=== PATIENT | male | born 1955 | race Caucasian/White ===

== ENCOUNTER 2023-08-20 06:10 | Day surgery (SDC) | payer OTHER, SELFPAY ==
[2023-08-16 07:16] VITALS: BMI 48.4
[2023-08-16 08:59] LABS: Hematocrit 50.9 % (39.0-52.0); Hemoglobin 17.2 g/dL (13.0-18.0); Mean Corp Hgb Conc. 33.8 g/dL (33.0-37.0); Mean Corpuscular Hgb 32.3 pg (27.0-31.0); Mean Corpuscular Volume 95.7 fL (80.0-94.0); Mean Platelet Volume 12.3 fL (7.4-10.4); Platelet Count 140 10^3/uL (130-400); Red Blood Cell Count 5.32 10^6/uL (4.70-6.10); Red Cell Dist. Width 13.9 % (11.5-14.5); White Blood Cell Count 4.7 10^3/uL (4.8-10.8)
[2023-08-16 09:12] LABS: APTT 32.3 Sec (23.4-35.0); INR 1.04; PT 13.4 Sec (11.4-14.6)
[2023-08-16 09:32] LABS: ALT (SGPT) 22 U/L (0-50); AST (SGOT) 35 U/L (17-59); Albumin 4.1 g/dl (3.5-5.0); Alkaline Phosphatase 114 U/L (38-126); Blood Urea Nitrogen 21 mg/dl (9-20); Calcium 10.3 mg/dl (8.4-10.2); Carbon Dioxide 28 mmol/L (22-30); Chloride 101 mmol/L (98-107); Estimated Creatinine Clearance > 125 ml/min; Glucose 198 mg/dl (70-99); Potassium 4.7 mmol/L (3.5-5.1); Sodium 134 mmol/L (135-145); Total Bilirubin 0.6 mg/dl (0.2-1.3); Total Protein 6.8 g/dl (6.3-8.2); eGFR > 60.00
[2023-08-20] VITALS (12 sets, daily range): BP systolic 116–161; BP diastolic 60–86; BMI 48.4
[2023-08-20] MEDS: TYLENOL 1000 MG PO (09:12)
[2023-08-20] MEDS: HEPARIN 5000 UNITS SC (09:13)
[2023-08-20] MEDS: NEURONTIN 300 MG PO (09:13)
[2023-08-20] MEDS: NORMOSOL-R 1000 IV (09:23)
[2023-08-20 09:24] LABS: Glucose - Point of Care 225 mg/dl (70-99)
[2023-08-20] MEDS: NOVOLOG vial 1 UNITS SC ×3 (09:35→13:31)
[2023-08-20 10:44] LABS: Turbo PTH 109.2 pg/ml (13.6-85.8)
[2023-08-20 11:09] LABS: Glucose - Point of Care 196 mg/dl (70-99)
[2023-08-20 11:29] LABS: Turbo PTH 23.1 pg/ml (13.6-85.8)
--- NOTE | 2023-08-20 11:46 | OR.RPT ---
Operative Report
Operative Report
Date of Operation: August 20, 2023
Preoperative Diagnosis: Parathyroid hyperparathyroidism - E210
Postoperative Diagnosis: Same
Surgeon: Rene Alejo M.D.
Operation: Minimally Invasive Right Inferior Parathyroidectomy - 29218
Anesthesia: GET
Estimated Blood Loss: 530 cc
Drains: None
Specimen: Right inferior neck nodule, rule out parathyroid adenoma
Complications: None
Procedure:
The patient was taken to the operating room and placed in the usual supine position. After adequate general endotracheal anesthesia was established, the patient's neck was extended, prepped, and draped in the typical sterile fashion. A 4 cm
transcervical incision was made two fingerbreadths above the sternal notch. The skin incision was made with the #15 blade, and this was taken through the skin into the subcutaneous tissue. The underlying platysma muscle was divided, and subplatysmal
flaps were created superiorly to the thyroid cartilage and inferiorly to the sternal notch. Strap muscles were identified and at the midline.
Attention was turned to the patient's right side of the neck. The right thyroid lobe was mobilized medially. During this process, the right recurrent laryngeal nerve was identified and preserved throughout the surgery. The right lower neck nodule
was identified and noted to be enlarged, excised, and sent to the pathology department, which showed a hypercellular parathyroid gland. The intraoperative PTH levels normalized.
After obtaining adequate hemostasis, the strap muscles were reapproximated with #3-0 Vicryl in a running fashion. The platysma muscle was reapproximated with #3-0 Vicryl in an interrupted fashion, and the skin was approximated with #4-0 Monocryl in
a running subcuticular fashion. The Steri-Strips and sterile dressings were placed. The patient tolerated the procedure well. The final instrument, needle, and sponge counts were correct. The patient was extubated and transferred to the PACU.
[2023-08-20 12:01] LABS: Glucose - Point of Care 220 mg/dl (70-99)
[2023-08-20 13:24] LABS: Glucose - Point of Care 203 mg/dl (70-99)
== END 2023-08-20 14:38 | disposition home or self-care (01) ==
LOC: SDS 06:10
PROVIDERS: ATTENDING PHYSICIAN Surgery; FAMILY PHYSICIAN Orthopaedic Surgery
DX: E21.0 Primary hyperparathyroidism (principal); R22.1 Localized swelling, mass and lump, neck
CPT/HCPCS: 60500; 88305; 88332; 36415; 80053; 82962; 83970; 85027; 85610; 85730; 88331; 93005; C9250